=== PATIENT | male | born 1990 | race African-American/Black ===

== ENCOUNTER 2021-12-29 01:58 | Emergency (ER) | payer MEDICARE ==
[~2021-12-29] VITALS: Ht 177.8 cm; Wt 75.0 kg
[2021-12-29 04:10] VITALS: BP 116/71
== END 2021-12-29 04:20 | disposition home or self-care (01) ==
LOC: EMS 02:04
DX: F41.9 Anxiety disorder, unspecified (principal); Z59.00 Homelessness unspecified
CPT/HCPCS: 99283; Z7502